=== PATIENT | male | born 1955 | race African-American/Black ===

== ENCOUNTER 2017-09-30 19:12 | Emergency (ER) | payer OTHER ==
[~2017-09-30] VITALS: Ht 185.4 cm; Wt 88.5 kg
[2017-09-30 19:32] VITALS: BP 132/89
[2017-09-30] MEDS ORDERED: HYDROMORPHONE 1 MG/1 ML DISP.SYRIN IM ONE (22:00)
[2017-09-30] MEDS ORDERED: ONDANSETRON 4 MG TAB.RAPDIS SL ONE (22:00)
[2017-09-30] MEDS ORDERED: ONDANSETRON 4 MG TAB.RAPDIS ONE (22:08)
[2017-09-30] MEDS ORDERED: HYDROMORPHONE INJ 2 MG/ML DISP.SYRIN ONE (22:08)
== END 2017-09-30 22:20 | disposition home or self-care (01) ==
LOC: ER 19:15
DX: R51 Headache (principal); E78.00 Pure hypercholesterolemia, unspecified; I10 Essential (primary) hypertension; Z88.5 Allergy status to narcotic agent; Z88.6 Allergy status to analgesic agent
CPT/HCPCS: 96372; 99283; A4606; J1170; Q0162; Z7610